=== PATIENT | female | born 1945 | race Caucasian/White ===

== ENCOUNTER 2018-06-06 12:50 | Emergency (ER) | payer MEDICARE, MEDICAID ==
[2018-06-06] MEDS ORDERED: Sodium Chloride 0.9% 1,000 ML IV STA (14:19)
--- NOTE | 2018-06-06 14:22 | ED PDOC ---
HPI: Abdomen Time Seen by Provider: 06/06/18 14:13 Chief Complaint (Nursing): Abdominal Pain History Per: Patient Onset/Duration Of Symptoms: Days (2) Current Symptoms Are (Timing): Still Present Severity: Mild Pain Scale Rating Of: 3 Location Of Pain/Discomfort: Epigastric Quality Of Discomfort: Burning Associated Symptoms: Nausea, Vomiting, Diarrhea. denies: Fever Exacerbating Factors: None Alleviating Factors: None Additional Complaint(s): Epigastric abd pain assoc with NVD x 2 days. Denies fever. Denies urinary sxs. Poor PO intake. Past Medical History Vital Signs: Last Vital Signs Temp 98.1 F 06/06/18 13:16 Pulse 98 H 06/06/18 13:16 Resp 18 06/06/18 13:16 BP 148/81 06/06/18 13:16 Pulse Ox 97 06/06/18 14:22 - Medical History PMH: Gastritis - Family History Family History: States: Unknown Family Hx - Home Medications Home Medications: Ambulatory Orders Medication Instructions Recorded Acetaminophen/Hydrocodone Bi 1 tab PO QID PRN #10 tab 01/07/15 [Vicodin 300 mg-5 mg] Cephalexin [Keflex] 500 mg PO QID 14 Days cap 01/07/15 Pantoprazole Sodium [Protonix] 40 mg PO DAILY #30 tablet. 06/06/18 - Allergies Allergies/Adverse Reactions: Allergies Allergy/AdvReac Type Severity Reaction Status Date / Time No Known Allergies Allergy Verified 01/06/15 18:59 Review of Systems ROS Statement: Except As Marked, All Systems Reviewed And Found Negative Gastrointestinal: Positive for: Nausea, Vomiting, Abdominal Pain, Diarrhea Physical Exam - Reviewed Nursing Documentation Reviewed: Yes Vital Signs Reviewed: Yes - Physical Exam Appears: Positive for: Non-toxic, No Acute Distress Head Exam: Positive for: ATRAUMATIC, NORMAL INSPECTION, NORMOCEPHALIC Skin: Positive for: Normal Color, Warm, DRY Eye Exam: Positive for: EOMI, Normal appearance, PERRL ENT: Positive for: Normal ENT Inspection Neck: Positive for: Normal, Painless ROM Cardiovascular/Chest: Positive for: Regular Rate, Rhythm Respiratory: Positive for: CNT, Normal Breath Sounds Gastrointestinal/Abdominal: Positive for: Soft, Tenderness (Epigastric) Back: Positive for: Normal Inspection Extremity: Positive for: Normal ROM Neurologic/Psych: Positive for: Alert, Oriented - Laboratory Results Result Diagrams: 06/06/18 15:45 06/06/18 14:45 - ECG O2 Sat by Pulse Oximetry: 97 - Progress Re-evaluation Time: 16:35 Condition: Improved Disposition - Clinical Impression Clinical Impression: GERD (gastroesophageal reflux disease) - Patient ED Disposition Is Patient to be Admitted: No Counseled Patient/Family Regarding: Studies Performed, Diagnosis, Need For Followup, Rx Given - Disposition Disposition: Routine/Home Disposition Time: 16:35 Condition: FAIR Prescriptions: Pantoprazole Sodium [Protonix] 40 mg PO DAILY #30 tablet.dr Instructions: Acid Reflux (Gastroesophageal Reflux Disease), Adult (DC) Forms: [facility] ([place])
[2018-06-06 16:11] LABS: BASO # 0.1 K/uL (0.0-0.2); BASO % 1.1 % (0.0-2.0); EOS % 0.4 % (0.0-4.0); LYMPH # 2.4 K/uL (1.0-4.3); LYMPH % 23.3 % (20.0-40.0); MEAN CELL VOLUME 90.5 fl (81.0-99.0); MEAN CORPUSCULAR HEMOGLOBIN 29.3 pg (27.0-31.0); MEAN CORPUSCULAR HGB CONC 32.3 g/dL (33.0-37.0); MEAN PLATELET VOLUME 9.4 fl (7.2-11.7); MONO # 0.7 K/uL (0.0-0.8); MONO % 6.5 % (0.0-10.0); NEUT # 6.9 K/uL (1.8-7.0); NEUT % 68.7 % (50.0-75.0); RBC 4.44 Mil/uL (3.80-5.20); RED CELL DISTRIBUTION WIDTH 14.8 % (11.5-14.5); WHITE BLOOD COUNT 10.1 K/uL (4.8-10.8)
[2018-06-06 16:16] LABS: ALB/GLOB RATIO 0.8 (1.0-2.1); ALBUMIN 3.3 g/dL (3.5-5.0); ALT/SGPT 19 U/L (9-52); AST/SGOT 24 U/L (14-36); BLOOD UREA NITROGEN 8 mg/dl (7-17); CALCIUM 8.9 mg/dL (8.4-10.2); GFR NON-AFRICAN AMERICAN > 60
[2018-06-06 16:52] VITALS: BP 128/78; PULSE 78; RESP 19; TEMP 97; O2SAT 98
== END 2018-06-06 16:52 | disposition home or self-care (01) ==
LOC: H.ER 12:50 → EDBD 12:50 → H.ER 16:52
DX: K21.9 Gastro-esophageal reflux disease without esophagitis (principal)
CPT/HCPCS: 80053; 85025; 96374; 96375; 99282; J2405; J7030